=== PATIENT | male | born 1930 | race Caucasian/White ===

== ENCOUNTER → 2016-07-05 | Day surgery (SDC) | payer MEDICARE, BC ==
[~2016-07-05] MED LIST: ATOR40TA16 PO; DILT-64 PO; FERR325T PO; FURO1TAB62 PO; LACTATED RINGER'S 1000 ML INJ 1,000 ML ONE; METO100T PO; PRESCAP6 PO; PROPOFOL 200 MG/20 ML AMP IV ONE; TERA5CAP3 PO; ULOR40TA PO; ULTR50TA5 PO; VITA400C28 PO; VITATAB11 PO
== END | disposition home or self-care (01) ==
LOC: ESDC 11:18
PROVIDERS: ATTEND Internal Medicine Gastroenterology
DX: K62.5 Hemorrhage of anus and rectum (principal); D50.9 Iron deficiency anemia, unspecified; D12.5 Benign neoplasm of sigmoid colon; K57.90 Diverticulosis of intestine, part unspecified, without perforation or abscess without bleeding; K44.9 Diaphragmatic hernia without obstruction or gangrene; K22.2 Esophageal obstruction; K29.70 Gastritis, unspecified, without bleeding
CPT/HCPCS: 00740; 00810; 43239; 45385; 88305; 88312; J7120

== ENCOUNTER 2016-09-15 10:23 | Emergency (ER) | payer MEDICARE, BC ==
[~2016-09-15] VITALS: Ht 167.6 cm; Wt 63.0 kg
[2016-09-15 10:35] VITALS: BP 121/64; PULSE 108; RESP 18; TEMP 98; O2SAT 97
[2016-09-15] MEDS ORDERED: ATOR40TA16 PO (10:56)
[2016-09-15] MEDS ORDERED: FERR325T PO (10:56)
[2016-09-15] MEDS ORDERED: TERA5CAP3 PO (10:56)
[2016-09-15] MEDS ORDERED: VITATAB11 PO (10:56)
[2016-09-15] MEDS ORDERED: PRESCAP6 PO (10:56)
[2016-09-15] MEDS ORDERED: VITA400C28 PO (10:56)
[2016-09-15] MEDS ORDERED: FURO1TAB62 PO (10:56)
[2016-09-15] MEDS ORDERED: METO100T PO (10:56)
[2016-09-15] MEDS ORDERED: ULOR40TA PO (10:56)
[2016-09-15] MEDS ORDERED: DILT-64 PO (10:56)
[2016-09-15 11:00] VITALS: BP 114/77; PULSE 100; RESP 16; O2SAT 96
[2016-09-15] MEDS ORDERED: oxyCODONE/ACETAMINOPHEN 5 MG/325 MG TAB PO ONE (11:00)
--- NOTE | 2016-09-15 11:15 | PD ---
HPI . Fall Chief Complaint: Fall Time Seen by Provider: 10:56 Travel History International Travel<30 days: No Contact w/Intl Traveler<30days: No Traveled to known affect area: No History of Present Illness HPI Patient presents for evaluation of injury sustained in a fall. The fall occurred 4 days ago. He has been seen by his primary care physician for left mid back pain. The patient's family member reports that the chin has ordered an MRI of his back. The MRI scheduled for next week. The patient has subsequently been seen by his harbor master for an injury to his right eye. The family member reports that the harbor master. For the patient to have an MRI of his brain. The harbor master suggested that the patient come here to have the MRI expedited. I have explained to the patient's family member that we normally evaluate these types of injuries with plain films and CAT scans. The patient is unaware as to what exactly may have caused the fall. But, he injured his left posterior rib cage and his right eye. He denies any difficulty breathing. He denies any visual problems. He does not have any neck pain. The daughter states that he has had some memory problems since the fall but that his memory seems to be improving daily. The daughter has procured a walker for him and he has been using that for ambulation around the house. [facility] Past Medical History Atrial Fibrillation: Yes Cardiovascular Problems: Yes (HTN; CHF) High Cholesterol: Yes Congestive Heart Failure: Yes Cerebrovascular Accident: Yes (UNKNOWN) Diminished Hearing: No Hypertension: Yes Tetanus Vaccination: Unknown Social History Alcohol Use: No (QUIT MAR 2016) Tobacco Use: No (FORMER) Substance Use: No Allergies-Medications (Allergen,Severity, Reaction): Coded Allergies: No Known Allergies (Unverified , 09/15/16) Reported Meds & Prescriptions Reported Meds & Active Scripts Active Ultram (Tramadol HCl) 50 Mg Tab 50 Mg PO Q4H PRN Reported Vitamin D (Cholecalciferol) 400 Unit Cap 1 Cap PO DAILY Vitamin B Complex (B-Complex Vitamins) 1 Tab 1 Tab PO DAILY Preservision-Lutein (Multiple Vitamins W/ Minerals) 1 Cap 1 Cap PO DAILY Atorvastatin (Atorvastatin Calcium) 40 Mg Tab 40 Mg PO HS Terazosin (Terazosin HCl) 5 Mg Cap 5 Mg PO HS Ferrous Sulfate 325 Mg Tab 325 Mg PO BID Metoprolol Tartrate 100 Mg Tab 100 Mg PO DAILY Lasix (Furosemide) 20 Mg Tab 20 Mg PO DAILY Uloric (Febuxostat) 40 Mg Tab 40 Mg PO DAILY Diltiazem CD 24 HR 240 Mg Caper 240 Mg PO DAILY Review of Systems Except as stated in HPI: all other systems reviewed are Neg General / Constitutional: No: Fever, Chills Eyes: No: Diploplia, Blurred Vision HENT: No: Headaches Cardiovascular: No: Chest Pain or Discomfort Respiratory: No: Shortness of Breath Gastrointestinal: No: Nausea, Vomiting, Diarrhea, Abdominal Pain Musculoskeletal: Positive: Pain (left posterior chest wall) Skin: Positive Other (contusion around the right eye) Physical Exam Narrative GENERAL: I found the patient lying on the stretcher in the right lateral decubitus position with his head hanging off the bed. He reports that this makes his back feel better. SKIN: Warm and dry. HEAD: Atraumatic. Normocephalic. EYES: Pupils equal and round. He has some infraorbital bruising of the right eye. There is no tenderness to palpation of the surrounding bony structures. His extraocular movements are intact. Pupils are equal. There is no subconjunctival hemorrhage. ENT: No nasal bleeding or discharge. Mucous membranes pink and moist. NECK: Trachea midline. Neck is pain-free with full range of motion. CARDIOVASCULAR: Regular rate and rhythm. RESPIRATORY: No accessory muscle use. Lungs are clear with good air movement throughout. GASTROINTESTINAL: Abdomen soft, non-tender, nondistended. MUSCULOSKELETAL: No obvious deformities. No edema. He has diffuse tenderness to palpation of the left posterior rib cage. No crepitus palpated. No bruising or abrasions noted. NEUROLOGICAL: Awake and alert. No obvious cranial nerve deficits. Motor grossly within normal limits. Normal speech. PSYCHIATRIC: Appropriate mood and affect; insight and judgment normal. Data Data Last Documented VS Vital Signs Date Time Temp Pulse Resp B/P Pulse Ox O2 Delivery O2 Flow Rate FiO2 09/15/16 13:46 90 16 106/59 96 Room Air 09/15/16 10:[address] Brain W/O Iv Contrast(Rout) (09/15/16 10:56) Ct Thorax/ Chest W Iv Contrast (09/15/16 10:56) Ct Facial Bones W/O Iv Cont (09/15/16 10:56) Basic Metabolic Panel (Bmp) (09/15/16 10:56) ^ Saline Lock (09/15/16 10:56) Oxycodone-Acetamin 5-325 Mg (Percocet (09/15/16 11:00) Iodixanol 320 Inj (Rad Ct) (Visipaque 32 (09/15/16 12:19) Electrocardiogram (09/15/16 12:45) Ckmb (Isoenzyme) Profile (09/15/16 12:45) Complete Blood Count With Diff (09/15/16 12:45) Magnesium (Mg) (09/15/16 12:45) Prothrombin Time / Inr (Pt) (09/15/16 12:45) Act Partial Throm Time (Ptt) (09/15/16 12:45) Troponin I (09/15/16 12:45) Ecg Monitoring (09/15/16 12:45) Iv Access Insert/Monitor (09/15/16 12:45) Oximetry (09/15/16 12:45) Aspirin Chew (Aspirin Chew) (09/15/16 12:45) Sodium Chloride 0.9% Flush (Ns Flush) (09/15/16 12:45) Case Management Consult (09/15/16 ) ^ Home Health (09/15/16 13:45) Labs Laboratory Tests Test 09/15/16 09/15/16 11:10 11:15 White Blood Count 9.8 TH/MM3 Red Blood Count 3.29 MIL/MM3 Hemoglobin 9.9 GM/DL Hematocrit 30.8 % Mean Corpuscular Volume 93.5 FL Mean Corpuscular Hemoglobin 30.0 PG Mean Corpuscular Hemoglobin 32.1 % Concent Red Cell Distribution Width 14.8 % Platelet Count 345 TH/MM3 Mean Platelet Volume 7.9 FL Neutrophils (%) (Auto) 86.4 % Lymphocytes (%) (Auto) 8.7 % Monocytes (%) (Auto) 3.8 % Eosinophils (%) (Auto) 1.0 % Basophils (%) (Auto) 0.1 % Neutrophils # (Auto) 8.4 TH/MM3 Lymphocytes # (Auto) 0.9 TH/MM3 Monocytes # (Auto) 0.4 TH/MM3 Eosinophils # (Auto) 0.1 TH/MM3 Basophils # (Auto) 0.0 TH/MM3 CBC Comment DIFF FINAL Differential Comment Prothrombin Time 12.4 SEC Prothromb Time International 1.1 RATIO Ratio Activated Partial 26.3 SEC Thromboplast Time Magnesium Level 2.4 MG/DL Total Creatine Kinase 56 U/L Troponin I 0.02 NG/ML Sodium Level 142 MEQ/L Potassium Level 3.7 MEQ/L Chloride Level 105 MEQ/L Carbon Dioxide Level 27.6 MEQ/L Anion Gap 9 MEQ/L Blood Urea Nitrogen 40 MG/DL Creatinine 1.60 MG/DL Estimat Glomerular Filtration 41 ML/MIN Rate Random Glucose 102 MG/DL Calcium Level 8.0 MG/DL [facility] Medical Decision Making Medical Screen Exam Complete: Yes Emergency Medical Condition: Yes Interpretation(s) EKG shows atrial fibrillation with no ST segment elevation or depression. No old EKGs are available for comparison. Differential Diagnosis Differential diagnosis of chest trauma includes but is not limited to superficial abrasions/contusions, rib fracture, pneumothorax, hemothorax, pulmonary contusion, cardiac contusion, ruptured thoracic aorta My differential diagnosis of head trauma includes but is not limited to scalp contusion, concussion, intracerebral hemorrhage. Narrative Course Patient presents for evaluation of injury sustained in a fall 4 days ago. Specifically, he has an injury to the left posterior rib cage and to the right periorbital region. He is not having any difficulty breathing. He is not having any difficulty with his vision. The patient has actually already been cleared by ophthalmology. The harbor master suggested an MRI of his brain to rule out head injury. Last Impressions Maxillofacial CT 09/15/161055 Signed Impressions: Service Date/Time: Thursday, September 15, 2016 11:46 - CONCLUSION: 1. The osseous structures of the face are intact. 2. Soft tissue swelling around the right orbit and face. Ian Buitrago MD Head CT 09/15/161055 Signed Impressions: Service Date/Time: Thursday, September 15, 2016 11:46 - CONCLUSION: 1. Subacute area of cortical infarct involving the left occipital cortex. 2. No acute intracranial hemorrhage. Ian Buitrago MD Chest CT 09/15/161055 Signed Impressions: Service Date/Time: Thursday, September 15, 2016 11:52 - CONCLUSION: 1. Cardiomegaly and bilateral effusion suggesting congestive failure. 2. No definite rib fracture is identified. Ian Buitrago MD I have added a cardiac lab workup. CBC & BMP Diagram 09/15/16 11:10 09/15/16 11:15 Family has an adult daughter who is here with him. She states that there is another adult daughter who is on her way here. One of the 2 of them will be at the home 01/01. They would much prefer that he be at home. She states that he has been improving over the course of last couple days. The patient has been able to drink water and has been able to get up a bit with a walker. I feel that he is safe for discharge to home. The stroke occurred several days ago. He does have adequate outpatient follow-up. Diagnosis Primary Impression: Fall Qualified Code: W19.XXXA - Fall, initial encounter Additional Impressions: Stroke Qualified Code: I63.432 - Cerebrovascular accident (CVA) due to embolism of left posterior cerebral artery Contusion of left chest wall Qualified Code: S20.212A - Contusion of left chest wall, initial encounter Periorbital contusion of right eye Qualified Code: S05.11XA - Periorbital contusion of right eye, initial encounter Patient Instructions: General Instructions, Ischemic Stroke (DC) Additional Instructions: Take a baby aspirin every day. See your doctor for recheck next week. Ask your doctor whether or not she wants you to be on a blood thinner such as warfarin. Med/Other Pt SpecificInfo: Prescription(s) given Scripts Tramadol (Ultram)50 Mg Tab50 Mg PO Q4H PRN (PAIN) #14 TAB Ref 0 Prov:Chandni Peres MD 09/15/16 Disposition: 01 DISCHARGE HOME Condition: Stable Chandni Peres MD Sep 15, 2016 11:15 Chandni Peres MD Sep 15, 2016 11:15
[2016-09-15 11:31] LABS: POTASSIUM 3.7 MEQ/L (3.5-5.1)
[2016-09-15 11:34] LABS: BICARBONATE 27.6 MEQ/L (21.0-32.0)
[2016-09-15] MEDS ORDERED: IODIXANOL 320 MG/ML 10 ML VIAL (for Rad CT) IV ONE (12:19)
--- NOTE | 2016-09-15 12:23 | RADHPO ---
EXAM DATE/TIME: 09/15/2016 11:46 [facility] COMPARISON: No previous studies available for comparison. INDICATIONS : Fell 5 days ago. RADIATION DOSE: 70.47 CTDIvol (mGy) MEDICAL HISTORY : Cerebrovascular disease. Congestive heart failure. Hypertension. SURGICAL HISTORY : None. ENCOUNTER: Initial ACUITY: 1 day PAIN SCALE: 4/10 LOCATION: cranial TECHNIQUE: Multiple contiguous axial images were obtained of the head. Using automated exposure control and adj ustment of the mA and/or kV according to patient size, radiation dose was kept as low as reasonably a chievable to obtain optimal diagnostic quality images. FINDINGS: The ventricular system is normal in size and configuration. No acute intracranial hemorrhage is seen. The exam does demonstrate a sizable subacute infarct involving the left occipital cortex. No mass le stephane is evident. No extra-axial fluid collections are identified. The appearance of the posterior fossa is unremarkable. The osseous structures of the skull are intact. CONCLUSION: 1. Subacute area of cortical infarct involving the left occipital cortex. 2. No acute intracranial hemorrhage. Ian Buitrago MD on September 15, 2016 at 12:20 Board Certified Radiologist. This report was verified electronically.
--- NOTE | 2016-09-15 12:25 | RADHPO ---
EXAM DATE/TIME: 09/15/2016 11:46 [facility] COMPARISON: No previous studies available for comparison. INDICATIONS : Fell 5 days ago. Right facial bruising. RADIATION DOSE: 35.35 CTDIvol (mGy) MEDICAL HISTORY : Cerebrovascular disease. Congestive heart failure. Hypertension. SURGICAL HISTORY : None. ENCOUNTER: Initial ACUITY: 4 - 6 days PAIN SCORE: 6/10 LOCATION: Right facial TECHNIQUE: Volumetric scanning of the facial bones was performed. Using automated exposure control and adjustme nt of the mA and/or kV according to patient size, radiation dose was kept as low as reasonably achiev able to obtain optimal diagnostic quality images. FINDINGS: ORBITS: The orbital and infraorbital osseous structures are intact. The retroconal structures have a normal configuration. No radiopaque foreign bodies are seen. NASAL BONE: The nasal bone and maxillary spine are intact ZYGOMATIC ARCHES: Symmetric without evidence of fracture. SINUSES: The maxillary, ethmoid and frontal sinuses are intact. No air-fluid levels seen. NASAL CAVITY: The nasal septum is intact and midline. The lacrimal ducts are intact. SOFT TISSUES: No radiopaque foreign bodies seen. No soft-tissue swelling is seen. INTRACRANIAL: No intracranial air seen. CRIBIFORM PLATE: Grossly intact. CONCLUSION: 1. The osseous structures of the face are intact. 2. Soft tissue swelling around the right orbit and face. Ian Buitrago MD on September 15, 2016 at 12:21 Board Certified Radiologist. This report was verified electronically.
--- NOTE | 2016-09-15 12:29 | RADHPO ---
EXAM DATE/TIME: 09/15/2016 11:52 [facility] COMPARISON: CT FACIAL BONES W/O CONTRAST, September 15, 2016, 11:46. INDICATIONS : Fell 5 days ago. Upper back and left rib pain. IV CONTRAST: 47 cc Visipaque (iodixanol) IV RADIATION DOSE: 14.03 CTDIvol (mGy) MEDICAL HISTORY : Cerebrovascular disease. Congestive heart failure. Hypertension. SURGICAL HISTORY : None. ENCOUNTER: Initial ACUITY: 4 - 6 days PAIN SCALE: 9/10 LOCATION: Left chest TECHNIQUE: Volumetric scanning of the chest was performed. Using automated exposure control and adjustment of t he mA and/or kV according to patient size, radiation dose was kept as low as reasonably achievable to obtain optimal diagnostic quality images. FINDINGS: The examination demonstrates bilateral pleural effusions and COPD changes. No suspicious mass lesions are evident within the pulmonary parenchyma. There are mild atelectatic changes in the left lung bas e. The heart is mildly enlarged. There is atherosclerotic plaquing in the coronary arteries. There is mi nimal pericardial effusion. The limited portions of upper abdomen visualized demonstrated atrophic right kidney. The visualized osseous structures demonstrate degenerative changes in the thoracic spine. No acute fr actures identified. CONCLUSION: 1. Cardiomegaly and bilateral effusion suggesting congestive failure. 2. No definite rib fracture is identified. Ian Buitrago MD on September 15, 2016 at 12:24 Board Certified Radiologist. This report was verified electronically.
[2016-09-15] MEDS ORDERED: ASPIRIN 81 MG CHEW TAB PO ONE (12:45)
[2016-09-15] MEDS ORDERED: SODIUM CHLORIDE 0.9% FLUSH 10 ML FLUSH IVF PRN (12:45)
[2016-09-15 12:56] LABS: AUTOMATED NEUTROPHIL # 8.4 TH/MM3 (1.8-7.7); BASOPHIL % 0.1 % (0.0-2.0); EOSINOPHIL # 0.1 TH/MM3 (0-0.4); HEMATOCRIT 30.8 % (39.0-51.0); HEMO FLAGS DIFF FINAL; LYMPH % 8.7 % (9.0-44.0); LYMPHOCYTE # 0.9 TH/MM3 (1.0-4.8); MEAN CELL VOLUME 93.5 FL (80.0-100.0); MEAN CORPUSCULAR HGB CONC 32.1 % (32.0-36.0); MONO % 3.8 % (0.0-8.0); NEUT % 86.4 % (16.0-70.0); PLATELET COUNT 345 TH/MM3 (150-450); RED BLOOD COUNT 3.29 MIL/MM3 (4.50-5.90); RED CELL DISTRIBUTION WIDTH 14.8 % (11.6-17.2); WHITE BLOOD COUNT 9.8 TH/MM3 (4.0-11.0)
[2016-09-15 13:01] LABS: APTT (PATIENT) 26.3 SEC (24.3-30.1); INTERNATIONAL NORMALIZED RATIO 1.1 RATIO; PROTHROMBIN TIME - PATIENT 12.4 SEC (9.8-11.6)
[2016-09-15 13:11] LABS: MAGNESIUM 2.4 MG/DL (1.5-2.5)
[2016-09-15] MEDS ORDERED: ULTR50TA5 PO (13:41)
[2016-09-15 13:46] VITALS: BP 106/59; PULSE 90; RESP 16; O2SAT 96
--- NOTE | 2016-09-15 14:02 | HHI.FF ---
Face to Face Verification Diagnosis: (1) Stroke (2) Fall Physical Therapy Order: Evaluate and Treat Occupational Therapy Order: Evaluate and Treat Speech Therapy Order: To Improve: Swallowing Home Health Nursing Order: Medication education-adverse effect Nursing assessment with vital signs Harness Cleaner Order: To Provide: Long range planning I have seen patient Shawn Mack on 09/15/16. My clinical findings support the need for the requested home health care services because: Deconditioned w/ increased weakness High risk of falls I certify that my clinical findings support that this patient is homebound because: Unsteady gait/balance Patient presented to the emergency department with a subacute stroke. This led to a fall. Chandni Peres MD Sep 15, 2016 14:02
[2016-09-15 14:03] VITALS: O2SAT 96
--- NOTE | 2016-09-16 14:24 | EKG ---
Date Performed: 09/15/2016 Time Performed: 13:00:32 PTAGE: 85 years EKG: Atrial fibrillation Poor R wave progression - probable normal variant Inferior and ant/sept al T wave changes are nonspecific Low QRS voltages in precordial leads Abnormal ECG NO PREVIOUS TRACING DOCTOR: iMtch Crowell Interpretating Date/Time 09/16/2016 14:23:28
== END 2016-09-15 14:15 | disposition home or self-care (01) ==
LOC: PHED 10:23
DX: S20.212A Contusion of left front wall of thorax, initial encounter (principal); S00.11XA Contusion of right eyelid and periocular area, initial encounter; R07.89 Other chest pain; I48.91 Unspecified atrial fibrillation; I10 Essential (primary) hypertension; E78.00 Pure hypercholesterolemia, unspecified; I50.9 Heart failure, unspecified; Z87.891 Personal history of nicotine dependence; W19.XXXA Unspecified fall, initial encounter; Y93.9 Activity, unspecified; Y92.9 Unspecified place or not applicable; Y99.8 Other external cause status
CPT/HCPCS: 70450; 70486; 71260; 80048; 82550; 83735; 84484; 85025; 85610; 85730; 93005; 99284; Q9967

== ENCOUNTER 2016-11-26 00:22 | Emergency (ER) | payer MEDICARE, BC ==
[~2016-11-26 00:22] MED LIST changes: -LACTATED RINGER'S 1000 ML INJ 1,000 ML ONE; -PROPOFOL 200 MG/20 ML AMP IV ONE
--- NOTE | 2016-11-26 01:03 | PD ---
HPI Chief Complaint: cardiopulmonary arrest Time Seen by Provider: 00:43 Travel History International Travel<30 days: No Contact w/Intl Traveler<30days: No Traveled to known affect area: No History of Present Illness HPI The patient is an 86-year-old male, resident of [facility]. The nurses at [facility] were about to giving a breathing treatment when it was noted that he was not breathing. The time with breathing is not exactly known but it is approximately at a quarter till 12 according to the nursing personnel there. BLS was applied at [facility] and the ambulance was notified. BLS was applied until the ambulance personnel took over, approximately 5-10 minutes. The patient was brought to the emergency department , ambulance personnel state that he had been getting BLS/ALS for approximately 30 minutes prior to arrival in the emergency department. The patient apparently is a full code according to ambulance personnel. He was initially found in asystole and then converted to PEA. At least 4 epinephrine doses were given in the field and a Combitube was put in. He was given 1 amp of bicarbonate as well. The patient had no response. PFSH Past Medical History Atrial Fibrillation: Yes Cardiovascular Problems: Yes (HTN; CHF) High Cholesterol: Yes Congestive Heart Failure: Yes Cerebrovascular Accident: Yes (UNKNOWN) Diminished Hearing: No Hypertension: Yes Social History Alcohol Use: No (QUIT MAR 2016) Tobacco Use: No (FORMER) Substance Use: No Allergies-Medications (Allergen,Severity, Reaction): Coded Allergies: No Known Allergies (Unverified , 09/15/16) Reported Meds & Prescriptions Reported Meds & Active Scripts Active Ultram (Tramadol HCl) 50 Mg Tab 50 Mg PO Q4H PRN Reported Vitamin D (Cholecalciferol) 400 Unit Cap 1 Cap PO DAILY Vitamin B Complex (B-Complex Vitamins) 1 Tab 1 Tab PO DAILY Preservision-Lutein (Multiple Vitamins W/ Minerals) 1 Cap 1 Cap PO DAILY Atorvastatin (Atorvastatin Calcium) 40 Mg Tab 40 Mg PO HS Terazosin (Terazosin HCl) 5 Mg Cap 5 Mg PO HS Ferrous Sulfate 325 Mg Tab 325 Mg PO BID Metoprolol Tartrate 100 Mg Tab 100 Mg PO DAILY Lasix (Furosemide) 20 Mg Tab 20 Mg PO DAILY Uloric (Febuxostat) 40 Mg Tab 40 Mg PO DAILY Diltiazem CD 24 HR 240 Mg Caper 240 Mg PO DAILY Review of Systems ROS Limitations: Unresponsive Physical Exam Narrative GENERAL: The patient is thin, cachectic without any pulse and only occasional agonal respirations. He feels cool. SKIN: Focused skin assessment warm/dry. HEAD: Atraumatic. Normocephalic. EYES: Pupils fixed and dilated. No scleral icterus. No injection or drainage. ENT: No nasal bleeding or discharge. Mucous membranes pink and moist. NECK: Trachea midline. No JVD. CARDIOVASCULAR: No heart sounds are heard, pulses are felt with compressions only. RESPIRATORY: Only occasional agonal respirations are noted GASTROINTESTINAL: Abdomen soft, non-tender, nondistended. Hepatic and splenic margins not palpable. MUSCULOSKELETAL: No obvious deformities. No clubbing. MDM Medical Decision Making Medical Screen Exam Complete: Yes Emergency Medical Condition: Yes Medical Record Reviewed: Yes Interpretation(s) A bedside ultrasound was done focusing on the cardiac area and extremely small amounts of cardiac movement was detected. This was not enough to move any blood or change the configuration of the valves. No pericardial effusion was noted. Differential Diagnosis Acute coronary syndrome, pericardial effusionunlikely, acute blood loss, aortic ruptureunlikely Narrative Course The patient appears to have an acute coronary syndrome with initial asystole and ultimately PEA. His time between when he was noted to be breathing and when they discovered he was apneic was 15-20 minutes. His pupils are fixed and dilated when I saw him in the emergency department. He had undergone CPR for approximately 30 minutes when I saw him in the emergency department. He had fairly good color in that he did not appear extremely anemic. He had good pulses with compressions but never had a pulse without compressions. Respirations were only agonal and rare. Resuscitative efforts were terminated at 12:28 AM. Diagnosis Primary Impression: Sudden cardiac Disposition: 20 Condition: Cong Addison MD Nov 26, 2016 01:03
== END 2016-11-26 02:45 | disposition expired ==
LOC: PHED 00:22
DX: I46.9 Cardiac arrest, cause unspecified (principal)
CPT/HCPCS: 99283